=== PATIENT | female | born 1990 | race African-American/Black ===

== ENCOUNTER 2017-07-15 15:20 | Emergency (ER) | payer OTHER ==
[~2017-07-15] VITALS: Ht 172.7 cm; Wt 65.6 kg
[2017-07-15] MEDS ORDERED: AFRIN,GENASAL D15 ML BOTH NARES (17:13)
[2017-07-15] MEDS ORDERED: TESSALON PERLE100 MG PO (17:13)
[2017-07-15] MEDS ORDERED: GUAIFENESIN600 M1 PO (17:13)
[2017-07-15] MEDS ORDERED: NAPROSYN500 MG PO (17:13)
[2017-07-15 17:29] VITALS: BP 125/68
== END 2017-07-15 17:31 | disposition home or self-care (01) ==
LOC: EME 15:20
DX: J02.9 Acute pharyngitis, unspecified (principal); R05 Cough; J34.89 Other specified disorders of nose and nasal sinuses; F17.200 Nicotine dependence, unspecified, uncomplicated
CPT/HCPCS: 93005; 99281; 99284